=== PATIENT | male | born 1965 | race Caucasian/White ===

== ENCOUNTER → 2016-09-02 | Outpatient (CLI) | payer OTHER, MEDICARE ==
[~2016-09-02] MED LIST: CIALIS5 MG PO; LISINOPRIL/HCTZ1 TA3 PO; LOVASTATIN20 MG PO; METOPROLOL25 MG PO; MOBIC15 MG PO; NORCO 325 MG-51 TAB PO; PROTONIX 40MG T40 MG PO; PROTONIX40 MG PO
--- NOTE | 2016-09-02 16:33 | RADIOLOGY REPORT PS360 ---
KNEE-3 VIEWS-LT HISTORY: LT KNEE PAIN ORDERING PHYSICIAN: GABRIELE ANSARI PATIENT AGE: 51 years COMPARISON: None FINDINGS: There is minimal decrease in the joint space medially. Small ossification once again noted medial to the medial femoral condyle and could represent prior avulsion injury. No acute fracture or dislocation. No lytic or blastic change and no significant change from 08/28/2010. IMPRESSION: 1. Minimal osteoarthritic change medial compartment. 2. Suspect old avulsion injury of the medial collateral ligament superiorly
== END ==
LOC: RAD 15:12
DX: M25.562 Pain in left knee (principal)